=== PATIENT | male | born 1985 | race Hispanic/Latino ===

== ENCOUNTER 2019-03-31 16:58 | Outpatient (RCR) | payer OTHER | END 2019-04-17 | LOC: PT 16:58 | PROVIDERS: ATTEND Neurological Surgery | DX: M51.17 Intervertebral disc disorders with radiculopathy, lumbosacral region (principal) ==

== ENCOUNTER 2019-05-12 17:00 | Outpatient (RCR) | payer OTHER | END 2019-05-17 | LOC: PT 17:00 | PROVIDERS: ATTEND Neurological Surgery | DX: M51.17 Intervertebral disc disorders with radiculopathy, lumbosacral region (principal) | CPT/HCPCS: 97139 ==

== ENCOUNTER 2019-06-09 16:47 | Outpatient (RCR) | payer OTHER | END 2019-06-17 | LOC: PT 16:47 | PROVIDERS: ATTEND Neurological Surgery | DX: M51.17 Intervertebral disc disorders with radiculopathy, lumbosacral region (principal) ==